=== PATIENT | female | born 1995 | race Caucasian/White ===

== ENCOUNTER 2017-04-22 00:15 | Outpatient (CLI) | payer OTHER ==
[2017-04-22 00:51] VITALS: BP 114/75; PULSE 84; RESP 18; TEMP 96.7
[2017-04-22 01:07] LABS: Appearance,Urine Cloudy (Clear); Bacteria,Urine Occasional /hpf; Bilirubin,Urine Negative (Negative); Glucose,Urine (UA) Negative (Negative); Ketones,Urine 2+ (Negative); Leukocyte Esterase,Urine Large (Negative); Mucus,Urine Rare /hpf; Nitrite,Urine Positive (Negative); Particle Count 29267; Protein,Urine 1+ (Negative); RBC,Urine 26 /hpf (0-5); Specific Gravity,Urine 1.021 (1.001-1.035); Squamous Epithelial Cell,Urine 34 /hpf (0-4); UA Billing (MACRO vs. MICRO) MICRO; Urobilinogen,Urine <2.0 mg/dL (<2.0); WBC,Urine >182 /hpf (0-5)
--- NOTE | 2017-05-21 09:15 | P.MSEPDOC ---
Presenting Problems - Arrival Data Date of Arrival on Unit: 04/22/17 Time of Arrival on Unit: 00:20 Mode of Transport: Wheelchair - Complaint OB-Reason for Admission/Chief Complaint: Observation/Evaluation Comment: vaginal pressure Medical History - Information : 2 Para: 1 Term: 1 : 0 Abortions: Spontaneous or Elective: 0 Number of Living Children: 1 - Gestational Age Gestational Age by RICHARD (wks/days): 29 Weeks and 6 Days Review of Systems - Review of Systems Constitutional: No problems Breast: No problems ENT: No problems Cardiovascular: No problems Respiratory: No problems Gastrointestinal: No problems Genitourinary: No problems Musculoskeletal: No problems Neurological: No problems Skin: No problems Vital Signs - Temperature Temperature: 96.7 F Temperature Source: Temporal Artery Scan - Pulse Right Pulse Rate: 84 Pulse Assessment Method: Automatic Cuff - Respirations Respiratory Rate: 18 Oxygen Delivery Method: Room Air O2 Sat by Pulse Oximetry: 100 - Blood Pressure Right Arm Blood Pressure: 114/75 Blood Pressure Mean: 88 Blood Pressure Source: Automatic Cuff Medical Screen Scoring (Pre) - Cervical Exam Dilation: 0 cm = 0 Membranes: Intact - Uterine Contractions Frequency: N/A Duration: N/A Intensity: N/A - Maternal Vital Signs Maternal Temperature: N/A Maternal Blood Pressure: N/A Signs of Preeclampsia: N/A Maternal Respirations: N/A - Maternal Trauma Maternal Trauma: N/A - Assessment Baseline FHR: 130 Heart Rate - NICHD Category: Category I (Normal) = 0 NST: Reactive Position: N/A Station: N/A - Total Score Total Score (Pre): 0 - Level of Risk Level of Risk: Low (0-5) Physician Notification (Pre) - Physician Notified Physician Notified Date: 04/22/17 Physician Notified Time: 00:45 Physician/Practitioner Notifed:: Dr Castillo Spoke With: Eliza Bueno RN New Order Received: Yes - Notification Comment Comment: send u/a to lab, have pt call office on Sunday for a follow up appt Disposition - Disposition Discharge Date: 04/22/17 Discharge Time: 01:21 I agree with the RN Medical Screening Exam: Yes Risk & Benefit of care provided described in d/c instruction: Yes Diagnosis: FALSE LABOR BEFORE 37 COMPLETED WEEKS OF GEST, THIRD TRI
== END 2017-04-22 01:21 | disposition home or self-care (01) ==
LOC: FBPOP 00:15
PROVIDERS: ATTEND Obstetrics & Gynecology
DX: O47.03 False labor before 37 completed weeks of gestation, third trimester (principal); Z3A.29 29 weeks gestation of pregnancy
CPT/HCPCS: 59025; 82731; 81001; 87086; G0463; 99213

== ENCOUNTER 2017-05-16 23:30 | Outpatient (CLI) | payer OTHER ==
[2017-05-17 00:24] VITALS: BP 121/71; PULSE 73; RESP 16; TEMP 97.2
[2017-05-17 00:32] LABS: Appearance,Urine Cloudy (Clear); Bacteria,Urine Rare /hpf; Bilirubin,Urine Negative (Negative); Glucose,Urine (UA) Negative (Negative); Ketones,Urine Trace (Negative); Leukocyte Esterase,Urine Large (Negative); Mucus,Urine Occasional /hpf; Nitrite,Urine Negative (Negative); PH, Urine 6.5 (5.0-8.0); Particle Count 17025; Protein,Urine Trace (Negative); RBC,Urine 3 /hpf (0-5); Specific Gravity,Urine 1.013 (1.001-1.035); Squamous Epithelial Cell,Urine 2 /hpf (0-4); UA Billing (MACRO vs. MICRO) MICRO; Urobilinogen,Urine <2.0 mg/dL (<2.0); WBC,Urine 18 /hpf (0-5)
[2017-05-17] MEDS ORDERED: NITROFURANTOIN MONOHYD/M-CRYST 100 MG CAP PO STA (01:11)
--- NOTE | 2017-06-09 12:06 | P.MSEPDOC ---
Presenting Problems - Arrival Data Date of Arrival on Unit: 05/16/17 Time of Arrival on Unit: 23:35 Mode of Transport: Wheelchair - Complaint OB-Reason for Admission/Chief Complaint: Pain Comment: back pain, pelvic pressure, spotting an "orange discharge" x1 Medical History - Information : 2 Para: 1 Term: 1 : 0 Abortions: Spontaneous or Elective: 0 Number of Living Children: 1 - Gestational Age Gestational Age by RICHARD (wks/days): 33 Weeks and 3 Days - History Comment: hx of 4th degree lac with 1st vag delivery, scheduled for primary c/s this time Review of Systems - Review of Systems Constitutional: No problems Breast: No problems ENT: No problems Cardiovascular: No problems Respiratory: No problems Gastrointestinal: No problems Genitourinary: No problems Musculoskeletal: No problems Neurological: No problems Skin: No problems Comment: bladder infection a few weeks ago. large amount thick, yellow, clumpy vag discharge noted on exam Vital Signs - Temperature Temperature: 97.2 F Temperature Source: Temporal Artery Scan - Pulse Right Pulse Rate: 73 Pulse Assessment Method: Pulse Oximetry - Respirations Respiratory Rate: 16 O2 Sat by Pulse Oximetry: 98 - Blood Pressure Right Arm Blood Pressure: 121/71 Blood Pressure Mean: 87 Blood Pressure Source: Automatic Cuff Medical Screen Scoring (Pre) - Cervical Exam Dilation: 1-3 cm = 1 Membranes: Intact - Uterine Contractions Frequency: > 5 minutes apart = 1 Duration: N/A Intensity: N/A - Maternal Vital Signs Maternal Temperature: N/A Maternal Blood Pressure: N/A Signs of Preeclampsia: N/A Maternal Respirations: N/A - Maternal Trauma Maternal Trauma: N/A - Assessment Baseline FHR: 130 Heart Rate - NICHD Category: Category I (Normal) = 0 NST: Reactive Position: N/A Station: N/A - Total Score Total Score (Pre): 2 - Level of Risk Level of Risk: Low (0-5) Physician Notification (Pre) - Physician Notified Physician Notified Date: 05/17/17 Physician Notified Time: 00:11 Physician/Practitioner Notifed:: Dr Escobedo - Notification Comment Comment: orders to send UA & ffn, if both are negative, pt may be d/c'd home with instructions to keep scheduled appt next week. if either are positive, call for further orders. Medical Screen Scoring (Post) - Cervical Exam Dilation: Exam Deferred Effacement: Exam Deferred - Uterine Contractions Frequency: N/A Duration: N/A Intensity: N/A - Maternal Vital Signs Maternal Temperature: N/A Signs of Preeclampsia: N/A - Assessment Heart Rate: 130 Heart Rate - NICHD Category: Category I (Normal) = 0 - Total Score Total Score (Post): 0 - Post Treatment Level of Risk Post Treatment Level of Risk: Low (0-5) Physician Notification (Post) - Physician Notified Physician Notified Date: 05/17/17 Physician Notified Time: 01:14 Physician/Practitioner Notified:: Dr Escobedo - Notification Comment Comment: 1 dose po macrobid now. call office in am for rx. d/c home after abx given here. Disposition - Disposition OB Disposition: Discharge to home Discharge Date: 05/17/17 Discharge Time: 02:14 I agree with the RN Medical Screening Exam: Yes Risk & Benefit of care provided described in d/c instruction: Yes Diagnosis: FALSE LABOR AT OR AFTER 37 COMPLETED WEEKS OF GESTATION
== END 2017-05-17 02:15 | disposition home or self-care (01) ==
LOC: FBPOP 23:30
PROVIDERS: ATTEND Obstetrics & Gynecology Obstetrics
DX: O47.1 False labor at or after 37 completed weeks of gestation (principal); Z3A.33 33 weeks gestation of pregnancy
CPT/HCPCS: 59025; 82731; 81001; 87086; G0463; 99213

== ENCOUNTER 2017-06-25 10:10 | Inpatient (IN) | payer OTHER ==
[2017-06-21 12:00] VITALS: BMI 40.5
[2017-06-25] MEDS ORDERED: ceFAZolin IN SWFI 2 GM/20 ML SYRINGE IVP ONE (10:31)
[2017-06-25] MEDS ORDERED: CITRIC ACID-SODIUM CITRATE 15 ML CUP PO ONE (10:31)
[2017-06-25] MEDS: LACTATED RINGERS 1,000 ML IV SCH ×4 (10:40→23:03)
[2017-06-25 11:11] LABS: Basophils % (A) 0 %; CH 24.8; CHCM 30.5; Eosinophils # (A) 0.1 k/uL (0-0.7); Eosinophils % (A) 1 %; HCT 36.9 % (34.0-46.0); HDW 3.09; HGB 11.5 gm/dL (11.4-16.0); Hypochromasia Marked; Luc # (Auto) 0.15; Luc % (Auto) 2; Lymphocytes # (A) 2.9 k/uL (1.0-4.8); Lymphocytes % (A) 29 %; MCH 25.5 pg (25.0-35.0); MCHC 31.2 g/dL (31.0-37.0); MCV 81.9 fL (80.0-100.0); Mean Platelet Volume 8.1; Monocytes # (A) 0.5 k/uL (0-1.0); Monocytes % (A) 5 %; Neutrophils # (A) 6.4 k/uL (1.3-7.7); Neutrophils % (A) 63 %; WBC 10.1 k/uL (3.8-10.6); WBC (Perox) 10.03
[2017-06-25] MEDS ORDERED: KETOROLAC 30 MG/ML 1 ML VIAL ONE (12:06)
[2017-06-25] MEDS ORDERED: OXYTOCIN 10 UNIT/ML 1 ML VIAL ONE (12:06)
[2017-06-25] MEDS ORDERED: ONDANSETRON 4 MG/2 ML VIAL ONE (12:06)
[2017-06-25] MEDS ORDERED: MORPHINE SULFATE (PF) 0.3 MG/0.3 ML SYR ONE (12:06)
[2017-06-25] MEDS ORDERED: NALBUPHINE 10 MG/ML AMPUL ONE (12:06)
[2017-06-25] MEDS ORDERED: PHENYLEPHRINE-0.9% NACL SYG 1 MG/10 ML SYRINGE ONE (12:06)
--- NOTE | 2017-06-25 12:10 | P.HPOB ---
History of Present Illness H&P Date: 06/25/17 This is a 22-year-old white female 2 para 1001 EDC 07/02/2017 at 39 weeks gestation. Patient presents today for elective section. She had a previous vaginal delivery with a fourth degree laceration, which required transfusion after hemorrhage. Recommendation from previously delivering addition was for section, declining vaginal . Fetus is been active throughout the . She denies vaginal bleeding or fluid leakage at this time. Past medical history is significant for blood transfusion 2015 after hemorrhage. Past surgical history is negative. Current medications vitamins daily. ALLERGIES none known. Family history is significant for diabetes and lung cancer and positive MTH SR. Obstetric history is significant for blood type A positive, rubella status immune. VDRL testing, urine culture, hepatitis B surface antigen, HIV testing, gonorrhea and chlamydia cultures all negative. One-hour Glucola 163, 3 hour GTT within normal limits. Positive group B strep cultures. On exam this is a pleasant young female, 5 foot 6 inches, 251 pounds, vital signs are stable and she is afebrile. Initial blood pressure 137/92. The general physical exam is within normal limits. Chest is clear. Extremities reveal no edema. 2+ reflexes. Cervix is 3 cm dilated, 75% effaced, vertex presentation. heart rate is consistent with reactive NST. Impression: 39 week intrauterine with a history of fourth degree laceration requiring blood transfusion at the time of delivery. Recommendation from previously delivering community outreach coordinator is for section. Plan: Antibiotics will be given. Patient is aware the risks benefits and alternatives of this plan. Questions answered. We will proceed with section, patient declining option of tubal ligation. Review of Systems Negative except as in HPI Past Medical History Past Medical History: No Reported History, GERD/Reflux Additional Past Medical History / Comment(s): prolapsed bladder. SEASONAL ALLERGIES History of Any Multi-Drug Resistant Organisms: None Reported Past Surgical History: Tonsillectomy Past Anesthesia/Blood Transfusion Reactions: No Reported Reaction Smoking Status: Never smoker - Past Family History Brother(s) Family Medical History: Blood Disorder Additional Family Medical History / Comment(s): MTHFR Medications and Allergies Home Medications Medication Instructions Recorded Confirmed Type Pediatric Multivitamin No.30 2 each PO DAILY 06/05/17 06/21/17 History [Multivitamin Children's Gummies] Cetirizine HCl [Zyrtec] 10 mg PO DAILY 06/21/17 06/21/17 History Allergies Allergy/AdvReac Type Severity Reaction Status Date / Time sulfamethoxazole Allergy Intermediate Rash/Hives Verified 06/21/17 11:52 [From Bactrim] trimethoprim [From Bactrim] Allergy Intermediate Rash/Hives Verified 06/21/17 11 :52 Exam - Vital Signs Vital signs: Intake and Output 06/24/17 06/25/17 06/25/17 22:59 06:59 14:59 Other: Weight 113.398 kg Patient Weight 06/26/17 06:59 Weight 113.398 kg See dictation under HPI please Results Result Diagrams: 06/25/17 10:45 Assessment and Plan Plan: Elective low transverse section at 39 weeks gestation, antibiotics for positive group B strep. Patient declining option for tubal ligation. Time with Patient: Less than 30
--- NOTE | 2017-06-25 13:09 | P.OP ---
Date of Procedure: 06/25/17 Preoperative Diagnosis: 39 week intrauterine , previous fourth degree laceration with hemorrhage, vaginal contraindicated. Postoperative Diagnosis: Liveborn male , nuchal cord 1. Procedure(s) Performed: Primary low transverse section Anesthesia: spinal Surgeon: Yovana Castillo Sustainability Analyst #1: Stef Lopez Estimated Blood Loss (ml): 600 IV fluids (ml): 1,800 Urine output (ml): 150 Pathology: other (Placenta) Condition: stable Disposition: PACU Description of Procedure: Patient is brought to the operating suite where a spinal with Duramorph is placed. She is then positioned in the dorsal lithotomy position with left lateral uterine displacement. The abdomen is prepped and draped in usual sterile fashion. The appropriate timeout is performed to assure proper patient and procedural identification. Analgesia is checked and noted to be adequate. A low transverse skin incision is made in this is carried down through the subcutaneous tissue which is approximate 6 cm deep. Fascia is isolated, scored , and extended bilaterally with curved Infante scissors. Peritoneum is next identified, incised, there is no bowel or bladder involvement. The bladder blade is placed over the dome of the bladder and at all times the bladder is Well from the operative field to avoid bladder and/or ureteral injury. A low transverse uterine incision is made in this is carried bilaterally with blunt dissection. Artificial amniorrhexis reveals clear fluid. Infant's head is delivered in the left occiput transverse position, there was a nuchal cord noted 1. The oropharynx, nasopharynx, and external nares were all bulb suctioned on the abdomen. Patient is officially delivered of a liveborn male at 1232 hrs. Umbilical cord is doubly clamped and ligated, he is handed to waiting nurses for evaluation where scores of 9 and 9 at one and 5 minutes respectively are given. Cord sample is held in case cord gases are appropriate. The placenta is delivered manually, it is inspected and noted to be intact with trivascular cord at 1232 hours. The uterus is then externalized , it is wiped clean with a sterile sponge to avoid any retained products of conception. The uterus is massaged and oxytocin is given. Antibiotics were given prior to beginning of the procedure. The uterus is closed in a two-step fashion, utilizing 0 Vicryl suture. First layer is running locking. Second layer is imbricated. Bilateral ovaries and tubes are inspected and noted to be within the normal range. Abdomen is suctioned with suction on guard and the uterus is gently placed back into the abdominal cavity. Bilateral gutters are inspected and cleaned. Uterine incision is clean and dry. Peritoneum was allowed to close by secondary intention. Fascia is closed in a running stitch of 0 Vicryl with over ligation in the midline. Subcutaneous tissue is irrigated, noted to be clean and dry. It is reapproximated with 3-0 Vicryl in a running stitch. 4-0 Monocryl suture is used in a subcuticular fashion for final skin closure. All sponge needle and enhancement counts are correct. [place] is noted to be draining clear urine, 150 mL's. Dressing is applied to the incision. Uterus is massaged. Total estimated blood loss 600 mL's. Patient is brought back to the recovery room with stable vital signs. She is requesting circumcision for her infant son.
[2017-06-25] MEDS ORDERED: ONDANSETRON 4 MG/2 ML VIAL IVP PRN (13:10)
[2017-06-25] MEDS ORDERED: METOCLOPRAMIDE 5 MG/ML 2 ML VIAL IVP PRN (13:10)
[2017-06-25] MEDS ORDERED: diphenhydrAMINE 50 MG/ML 1 ML VIAL IVP PRN ×2 (13:10)
[2017-06-25] MEDS ORDERED: diphenhydrAMINE 25 MG CAP PO PRN (13:10)
[2017-06-25] MEDS ORDERED: KETOROLAC 30 MG/ML 1 ML VIAL IVP PRN (13:10)
[2017-06-25] MEDS ORDERED: NALOXONE 0.4 MG/ML 1 ML VIAL IV PRN (13:10)
[2017-06-25] MEDS ORDERED: ACETAMINOPHEN TAB 325 MG TAB PO PRN (13:10)
[2017-06-25] MEDS ORDERED: diphenhydrAMINE 50 MG CAP PO PRN (13:10)
[2017-06-25] MEDS ORDERED: ZOLPIDEM 5 MG TAB PO PRN (13:10)
[2017-06-25] MEDS ORDERED: Acetaminophen-Codeine 300-30mg TAB PO PRN (13:10)
[2017-06-25] MEDS: SENNOSIDES-DOCUSATE SODIUM 1 EACH TAB PO SCH (21:17)
[2017-06-26] MEDS: LACTATED RINGERS 1,000 ML IV SCH ×3 (05:09→20:29)
[2017-06-26 08:02] LABS: Basophils % (A) 0 %; CH 25.4; CHCM 30.3; Eosinophils # (A) 0.1 k/uL (0-0.7); Eosinophils % (A) 1 %; HCT 35.5 % (34.0-46.0); HDW 3.26; HGB 10.6 gm/dL (11.4-16.0); Hypochromasia Marked; Luc # (Auto) 0.11; Luc % (Auto) 1; Lymphocytes # (A) 2.1 k/uL (1.0-4.8); Lymphocytes % (A) 23 %; MCH 25.1 pg (25.0-35.0); MCHC 29.8 g/dL (31.0-37.0); MCV 84.3 fL (80.0-100.0); Mean Platelet Volume 7.2; Monocytes # (A) 0.3 k/uL (0-1.0); Monocytes % (A) 3 %; Neutrophils # (A) 6.6 k/uL (1.3-7.7); Neutrophils % (A) 72 %; RBC 4.22 m/uL (3.80-5.40); RDW 14.1 % (11.5-15.5); WBC 9.1 k/uL (3.8-10.6)
[2017-06-26] MEDS: SENNOSIDES-DOCUSATE SODIUM 1 EACH TAB PO SCH ×2 (08:11→16:42)
[2017-06-26 08:32] VITALS: RESP 18
--- NOTE | 2017-06-26 09:07 | P.PN ---
Subjective Progress Note Date: 06/26/17 Slept well. Pain well managed. Moderate lochia rubra. Positive flatus. Objective - Vital Signs Vital signs: Vital Signs Temp 98.4 F 06/26/17 08:00 Pulse 68 06/26/17 08:00 Resp 18 06/26/17 08:00 BP 109/61 06/26/17 08:00 Pulse Ox 100 06/26/17 04:00 Intake & Output 06/25/17 06/26/17 06/26/17 18:59 06:59 18:59 Intake Total 600 250 Output Total 1000 750 Balance -400 -750 250 Weight 113.398 kg Intake: IV 600 Lactated Ringers 1,000 ml 240 @ 125 mls/hr IV .Q8H JOEL Rx#:[id number] Oral 250 Output: Urine 400 750 Uretheral (Collier) 200 Estimated Blood Loss 600 Other: Voiding Method Toilet # Voids 1 1 # Bowel Movements 0 - Constitutional General appearance: Present: average body habitus, cooperative - EENT Eyes: Present: PERRLA ENT: Present: hearing grossly normal - Neck Neck: Present: normal ROM Thyroid: bilateral: normal size - Respiratory Respiratory: bilateral: CTA - Cardiovascular Rhythm: regular - Gastrointestinal General gastrointestinal: Present: normal bowel sounds - Genitourinary Genitourinary Comment(s): Uterus firm, midline, symmetric, 18 week size. Abdominal incision clean and dry , intact, Steri-Strips and Mastisol applied. - Integumentary Integumentary: Present: normal turgor - Neurologic Neurologic: Present: CNII-XII intact - Musculoskeletal Musculoskeletal: Present: gait normal - Psychiatric Psychiatric: Present: A&O x's 3, appropriate affect, intact judgment & insight - Labs CBC & Chem 7: 06/26/17 07:44 Labs: Abnormal Lab Results - Last 24 Hours (Table) 06/26/17 Range/Units 07:44 Hgb 10.6 L (11.4-16.0) gm/dL MCHC 29.8 L (31.0-37.0) g/dL Assessment and Plan Plan: Advance diet and activity. Circumcision this morning. Likely discharge home tomorrow. Time with Patient: Less than 30
[2017-06-26] MEDS: IBUPROFEN 600 MG TAB PO PRN ×2 (10:04→16:42)
--- NOTE | 2017-06-26 10:12 | P.PN ---
Progress Note - Text Progress Note Date: 06/26/17 Status patient received intrathecal Duramorph ration was seen today in sitting up in bed no complaints being his pain score 0/10 no headache no itching. The cement and plan: Recent doing well in general no complications from anesthesia.
[2017-06-27] MEDS ORDERED: Acetaminophen-Codeine 300-30mg TAB ONE (01:30)
[2017-06-27] MEDS ORDERED: IBUPROFEN 600 MG TAB PO ONE (01:30)
[2017-06-27] MEDS: SENNOSIDES-DOCUSATE SODIUM 1 EACH TAB PO SCH (08:18)
--- NOTE | 2017-06-27 09:50 | P.DS ---
Providers Date of admission: 06/25/17 10:10 Expected date of discharge: 06/27/17 Attending physician: Yovana Castillo Primary care physician: Stated None Hospital Course: This is a 22-year-old white female 2 para 1001 EDC 07/02/2017 at 39 weeks gestation. Patient's previous delivery involved a fourth degree laceration that hemorrhage, requiring blood transfusion. Notes reviewed from previous delivery, includedpatient from the physician that future vaginal delivery was contraindicated, and that section was the preferred route for any future deliveries. Therefore 39 weeks, section was scheduled. Please see admitting history and physical for details. Patient underwent a primary low transverse section and gave to a liveborn male infant with scores of 9 and 9 at one and 5 minutes respectively. Infant weighed 8 lbs. 4 oz. or 3740 g. Estimated blood loss at surgery was 600 mL's. No intrauterine anomalies were noted. Please see my dictated note for details. Postoperatively the patient has done well. This morning she is complaining of a spinal headache, anesthesia has been notified and a blood patch is planned. The incision is clean and dry, intact, Steri-Strips applied. There is minimal to moderate lochia rubra. Uterus is firm, nontender, midline, 19-18 week size. Extremities are negative for edema. There is ecchymosis noted at the site of spinal injection on the patient's back. [place] has been circumcised and is doing well. Breast-feeding is going well. Prescription for breast pump has been written. Plan is for discharge home later today after the blood patch is given per the anesthesia staff. I have reminded the patient oh intercourse, tampons or douching. She will use [id number] ibuprofen as needed for pain, 200 mg pills, 3 every 6 hours as needed. I have asked her to call me with any fevers shakes or chills, foul smelling or copious lochia, with the passage of large blood clots, with any pain not alleviated by ibuprofen products, or indeed with any concerns. will follow-up with debrander as per recommendations. Contraceptive options have been discussed, and we will review this further in the office. She will follow-up with me in the office in 2 weeks. Patient Condition at Discharge: Good Plan - Discharge Summary Discharge Rx Participant: No New Discharge Prescriptions: No Action Pediatric Multivitamin No.30 [Multivitamin Children's Gummies] 2 each PO DAILY Cetirizine HCl [Zyrtec] 10 mg PO DAILY Discharge Medication List Pediatric Multivitamin No.30 [Multivitamin Children's Gummies] 2 each PO DAILY 06/05/17 [History] Cetirizine HCl [Zyrtec] 10 mg PO DAILY 06/21/17 [History] Follow up Appointment(s)/Referral(s): Yovana Castillo MD [STAFF PHYSICIAN] - 2 Weeks Discharge Disposition: HOME SELF-CARE
--- NOTE | 2017-06-27 11:00 | P.GSHP ---
History of Present Illness H&P Date: 06/27/17 This is a 22 years old. Female. Day 2 status post under spinal anesthesia, yesterday afternoon and today patient was complaining of severe positional headache which is enclosed with the sitting position and improved with laying supine, there was no focal neurological deficit there is no fever, headache not improve with the conservative treatment for this reason consultation for epidural blood patch was placed Past Medical History Past Medical History: No Reported History, GERD/Reflux Additional Past Medical History / Comment(s): prolapsed bladder. SEASONAL ALLERGIES History of Any Multi-Drug Resistant Organisms: None Reported Past Surgical History: Tonsillectomy Past Anesthesia/Blood Transfusion Reactions: No Reported Reaction Additional Past Anesthesia/Blood Transfusion Reaction / Comment(s): august 2014 blood transfusion after vag delivery of 2 units. Smoking Status: Never smoker - Past Family History Brother(s) Family Medical History: Blood Disorder Additional Family Medical History / Comment(s): MTHFR Medications and Allergies Home Medications Medication Instructions Recorded Confirmed Type Pediatric Multivitamin No.30 2 each PO DAILY 06/05/17 06/21/17 History [Multivitamin Children's Gummies] Cetirizine HCl [Zyrtec] 10 mg PO DAILY 06/21/17 06/21/17 History Allergies Allergy/AdvReac Type Severity Reaction Status Date / Time sulfamethoxazole Allergy Intermediate Rash/Hives Verified 06/21/17 11:52 [From Bactrim] trimethoprim [From Bactrim] Allergy Intermediate Rash/Hives Verified 06/21/17 11 :52 Surgical - Exam Vital Signs Temp Pulse Resp BP Pulse Ox 98.0 F 96 18 138/92 100 06/25/17 10:20 06/25/17 10:20 06/25/17 10:20 06/25/17 10:20 06/25/17 10:20 Results - Labs 06/26/17 07:44 Assessment and Plan Plan: Assessment and plan= postdural puncture headache, failed conservative treatment , patient could benefit from epidural blood patch procedure risk and benefits discussed with the patient she agreed with the preceding
--- NOTE | 2017-06-27 11:02 | P.PCN ---
Date of Procedure: 06/27/17 Procedure(s) Performed: Procedure= lumbar epidural blood patch. Preoperative diagnosis= postdural puncture headache. Postoperative diagnoses= post dural puncture headache. Indication for the procedure= patient developed headache after spinal anesthesia ,headache persists in spite of conservative treatment, there is no focal neurological deficit, no fever, no neck stiffness, headache worse with sitting and standing position, and improved with lying supine, for this reason patient is a good candidate for epidural blood patch. anesthesia= local infiltration with lidocaine 1% 3 mL. Complications= none. Description of the procedure= patient identified risks and benefits of the procedure explained to the patient and patient agreed with proceeding, vital signs monitored during the procedure Back lumbar area prepped with chlorhexidine 3 times, then drape applied the local infiltration of the skin and subcutaneous tissue with lidocaine 1% 3 mL at L5-S1 interlaminar space then 20 -gauge Tuohy needle advanced slowly at L5- S1 interlaminar space, There was positive loss of resistance to normal saline, no heme no paresthesia no cerebrospinal fluid, then after that he ML of the blood taken from the patient under strict sterile technique, and after the left antecubital area prepped with a chlorhexidine 3 times using 20-gauge Angiocath, and under sterile technique the 20 ML of the block taken from the patient injected in the epidural space after negative aspiration for heme or CSF and there was no paresthesia then the needle removed intact the skin cleaned and the , bandage applied and patient discharged home in stable condition after discharge criteria met,
[2017-06-27] MEDS: IBUPROFEN 600 MG TAB PO PRN (12:52)
[2017-06-27 15:21] VITALS: BP 107/61; PULSE 65; TEMP 97.9
== END 2017-06-27 16:11 | disposition home or self-care (01) | DRG 540 ==
LOC: 4FBP 10:10
PROVIDERS: ADMIT Obstetrics & Gynecology; ATTEND Obstetrics & Gynecology
PROC: 10D00Z1 Extraction of Products of Conception, Low, Open Approach (ICD-10-PCS; principal; 2017-06-25 12:00)
PROC: 3E0R3GC Introduction of Other Therapeutic Substance into Spinal Canal, Percutaneous Approach (ICD-10-PCS; 2017-06-27)
DX: O69.81X0 Labor and delivery complicated by cord around neck, without compression, not applicable or unspecified (principal); Z88.2 Allergy status to sulfonamides; Z37.0 Single live birth; Z3A.39 39 weeks gestation of pregnancy; G97.1 Other reaction to spinal and lumbar puncture; Z79.899 Other long term (current) drug therapy; Y84.4 Aspiration of fluid as the cause of abnormal reaction of the patient, or of later complication, without mention of misadventure at the time of the procedure
CPT/HCPCS: 85025; 86850; 86900; 86901; 88307

== ENCOUNTER 2019-11-21 20:08 | Emergency (ER) | payer OTHER ==
[2019-11-21 20:18] VITALS: TEMP 98.3
[2019-11-21] MEDS ORDERED: SODIUM CHLORIDE 0.9% 1,000 ML IV STA (20:58)
[2019-11-21 21:35] VITALS: BP 116/68; PULSE 82; RESP 16
[2019-11-21 21:43] LABS: Appearance,Urine Clear (Clear); Bacteria,Urine Rare /hpf; Bilirubin,Urine Negative (Negative); Blood,Urine Negative (Negative); Color,Urine Yellow; Glucose,Urine (UA) Negative (Negative); Ketones,Urine Negative (Negative); Leukocyte Esterase,Urine Moderate (Negative); Mucus,Urine Rare /hpf; Nitrite,Urine Negative (Negative); PH, Urine 5.5 (5.0-8.0); Protein,Urine Negative (Negative); RBC,Urine 1 /hpf (0-5); Specific Gravity,Urine 1.027 (1.001-1.035); Squamous Epithelial Cell,Urine 11 /hpf (0-4); Urobilinogen,Urine <2.0 mg/dL (<2.0); WBC,Urine 7 /hpf (0-5)
[2019-11-21 22:03] LABS: Basophils % (A) 0 %; Eosinophils # (A) 0.1 k/uL (0-0.7); Eosinophils % (A) 2 %; HCT 47.1 % (34.0-46.0); HGB 15.7 gm/dL (11.4-16.0); Lymphocytes # (A) 2.8 k/uL (1.0-4.8); Lymphocytes % (A) 36 %; MCH 29.8 pg (25.0-35.0); MCHC 33.3 g/dL (31.0-37.0); MCV 89.8 fL (80.0-100.0); Mean Platelet Volume 7.5; Monocytes # (A) 0.4 k/uL (0-1.0); Monocytes % (A) 5 %; Neutrophils # (A) 4.4 k/uL (1.3-7.7); Neutrophils % (A) 56 %; Platelet Count 294 k/uL (150-450); RBC 5.25 m/uL (3.80-5.40); RDW 13.7 % (11.5-15.5); WBC 7.9 k/uL (3.8-10.6)
[2019-11-21 22:04] LABS: ALT 17 U/L (4-34); AST 21 U/L (14-36); African American GFR (CKD) >90 (>60 ml/min/1.73 sqM); Albumin 4.2 g/dL (3.5-5.0); Alkaline Phosphatase 90 U/L (38-126); Amylase 57 U/L (30-110); Anion Gap 7 mmol/L; Blood Urea Nitrogen 11 mg/dL (7-17); Calcium 10.3 mg/dL (8.4-10.2); Carbon Dioxide 23 mmol/L (22-30); Chloride 106 mmol/L (98-107); Glucose 73 mg/dL (74-99); Non-African American GFR(CKD) >90 (>60 ml/min/1.73 sqM); Potassium 3.9 mmol/L (3.5-5.1); Sodium 136 mmol/L (137-145); Total Bilirubin 0.2 mg/dL (0.2-1.3); Total Protein 7.5 g/dL (6.3-8.2)
--- NOTE | 2019-11-21 22:25 | ED ---
Abdominal Pain HPI - General Chief Complaint: Abdominal Pain Stated Complaint: Cramping-13 wks Time Seen by Provider: 11/21/19 20:23 Source: patient Mode of arrival: ambulatory Limitations: no limitations - History of Present Illness Initial Comments: 24-year-old female patient who is approximately 13 weeks presents to the emergency department today for evaluation of right upper quadrant abdominal pain. Patient states she has been having pain for the last couple of days. She did see her primary care physician this morning with diagnosed with urinary tract infection and given Keflex. Patient states that her cramping seemed to w orsen this evening so she presented here for further evaluation. States it is a cramping sensation that is in the right upper quadrant and goes across her abdomen. Denies any back pain. Denies fever or chills. Denies any nausea, vomiting, constipation, or diarrhea. She denies any hematuria, dysuria, urinary frequency, urinary urgency. She denies any pelvic cramping, vaginal bleeding, or vaginal discharge. She did have an ultrasound at 8 weeks gestation confirming intrauterine . Patient denies any recent rash, cough, shortness of breath, chest pain, numbness, tingling, dizziness, weakness, headache, visual changes, or any other complaints. - Related Data Home Medications Medication Instructions Recorded Confirmed Pediatric Multivitamin No.30 2 each PO DAILY 06/05/17 11/21/19 [Multivitamin Children's Gummies] Cephalexin [Keflex] 500 mg PO Q6H 11/21/19 11/21/19 Folic Acid 1 mg PO DAILY 11/21/19 11/21/19 Allergies Allergy/AdvReac Type Severity Reaction Status Date / Time sulfamethoxazole Allergy Intermediate Rash/Hives Verified 11/21/19 21:09 [From Bactrim] trimethoprim [From Bactrim] Allergy Intermediate Rash/Hives Verified 11/21/19 21:09 nitrofurantoin Allergy Rash/Hives Verified 11/21/19 21:09 [From Macrobid] adhesive tape AdvReac Unknown Verified 11/21/19 21:09 Review of Systems ROS Statement: Those systems with pertinent positive or pertinent negative responses have been documented in the HPI. ROS Other: All systems not noted in ROS Statement are negative. Past Medical History Past Medical History: No Reported History, GERD/Reflux Additional Past Medical History / Comment(s): prolapsed bladder. SEASONAL ALLERGIES History of Any Multi-Drug Resistant Organisms: None Reported Past Surgical History: Tonsillectomy Past Anesthesia/Blood Transfusion Reactions: No Reported Reaction Additional Past Anesthesia/Blood Transfusion Reaction / Comment(s): august 2014 blood transfusion after vag delivery of 2 units. Past Psychological History: No Psychological Hx Reported Smoking Status: Never smoker Past Alcohol Use History: None Reported Past Drug Use History: None Reported - Past Family History Brother(s) Family Medical History: Blood Disorder Additional Family Medical History / Comment(s): MTHFR General Exam Limitations: no limitations General appearance: alert, in no apparent distress, other (Physical well- developed, well-nourished adult female patient in no acute distress. Vital signs upon presentation are temperature 98.3F, pulse 69, respirations 20, blood pressure 120/72, pulse ox 99% on room air.) Eye exam: Present: normal appearance, PERRL, EOMI. Absent: scleral icterus, conjunctival injection, periorbital swelling ENT exam: Present: normal exam, normal oropharynx, mucous membranes moist Respiratory exam: Present: normal lung sounds bilaterally. Absent: respiratory distress, wheezes, rales, rhonchi, stridor Cardiovascular Exam: Present: regular rate, normal rhythm, normal heart sounds. Absent: systolic murmur, diastolic murmur, rubs, gallop, clicks GI/Abdominal exam: Present: soft, tenderness (Right upper quadrant tenderness), normal bowel sounds. Absent: distended, guarding, rebound, rigid Back exam: Present: normal inspection. Absent: CVA tenderness (R), CVA tenderness (L) Neurological exam: Present: alert, oriented X3, CN II-XII intact Psychiatric exam: Present: normal affect, normal mood Skin exam: Present: warm, dry, intact, normal color. Absent: rash Course Vital Signs 11/21/19 11/21/19 11/21/19 20:16 21:34 22:43 Temperature 98.3 F 98.3 F Pulse Rate 69 82 82 Respiratory 20 16 16 Rate Blood Pressure 120/72 116/68 116/68 O2 Sat by Pulse 99 98 98 Oximetry Medical Decision Making - Medical Decision Making 24-year-old female patient presented to the emergency department today for evaluation of right upper quadrant abdominal cramping and pain. Patient is 13- 1/2 weeks , G3, P2. Denies vaginal bleeding or discharge. Denies pelvic cramping. Labs reviewed and are unremarkable. Urinalysis did show 7 white blood cells however she did start antibiotics for urinary tract infection. heart tones were obtained and range from 137-140. We did discuss possibility of gallbladder dysfunction as a cause for her symptoms. She is instructed to follow-up with her primary care physician for recheck in 1-2 days. She is instructed to maintain low-fat diet. She is instructed to contact her SENIOR GL ACCOUNTANT and inform her of her symptoms. Return parameters discussed in detail. She verbalizes understanding and agrees with this plan. - Lab Data Result diagrams: 11/21/19 21:42 11/21/19 21:42 Lab Results 11/21/19 11/21/19 11/21/19 Range/Units 20:45 21:42 21:42 WBC 7.9 (3.8-10.6) k/uL RBC 5.25 (3.80-5.40) m/uL Hgb 15.7 (11.4-16.0) gm/dL Hct 47.1 H (34.0-46.0) % MCV 89.8 (80.0-100.0) fL MCH 29.8 (25.0-35.0) pg MCHC 33.3 (31.0-37.0) g/dL RDW 13.7 (11.5-15.5) % Plt Count 294 (150-450) k/uL Neutrophils % 56 % Lymphocytes % 36 % Monocytes % 5 % Eosinophils % 2 % Basophils % 0 % Neutrophils # 4.4 (1.3-7.7) k/uL Lymphocytes # 2.8 (1.0-4.8) k/uL Monocytes # 0.4 (0-1.0) k/uL Eosinophils # 0.1 (0-0.7) k/uL Basophils # 0.0 (0-0.2) k/uL Sodium 136 L (137-145) mmol/L Potassium 3.9 (3.5-5.1) mmol/L Chloride 106 (98-107) mmol/L Carbon Dioxide 23 (22-30) mmol/L Anion Gap 7 mmol/L BUN 11 (7-17) mg/dL Creatinine 0.55 (0.52-1.04) mg/dL Est GFR (CKD-EPI)AfAm >90 (>60 ml/min/1.73 sqM) Est GFR (CKD-EPI)NonAf >90 (>60 ml/min/1.73 sqM) Glucose 73 L (74-99) mg/dL Calcium 10.3 H (8.4-10.2) mg/dL Total Bilirubin 0.2 (0.2-1.3) mg/dL AST 21 (14-36) U/L ALT 17 (4-34) U/L Alkaline Phosphatase 90 (38-126) U/L Total Protein 7.5 (6.3-8.2) g/dL Albumin 4.2 (3.5-5.0) g/dL Amylase 57 (30-110) U/L Lipase 136 (23-300) U/L Urine Color Yellow Urine Appearance Clear (Clear) Urine pH 5.5 (5.0-8.0) Ur Specific [place] 1.027 (1.001-1.035) Urine Protein Negative (Negative) Urine Glucose (UA) Negative (Negative) Urine Ketones Negative (Negative) Urine Blood Negative (Negative) Urine Nitrite Negative (Negative) Urine Bilirubin Negative (Negative) Urine Urobilinogen <2.0 (<2.0) mg/dL Ur Leukocyte Esterase Moderate H (Negative) Urine RBC 1 (0-5) /hpf Urine WBC 7 H (0-5) /hpf Ur Squamous Epith Cells 11 H (0-4) /hpf Urine Bacteria Rare H (None) /hpf Urine Mucus Rare H (None) /hpf Disposition Clinical Impression: Abdominal pain Disposition: HOME SELF-CARE Condition: Good Instructions (If sedation given, give patient instructions): Abdominal Pain (ED) Additional Instructions: Increase fluids. Rest. Complete antibiotic prescription as prescribed. Follow-up through primary care physician for recheck in 1-2 days. Follow up with her SENIOR GL ACCOUNTANT for recheck as soon as possible. Return immediately for any new, worsening, or concerning symptoms. Is patient prescribed a controlled substance at d/c from ED?: No Referrals: Clark Sanchez MD [Primary Care Provider] - 1-2 days Time of Disposition: 22:24
== END 2019-11-21 22:47 | disposition home or self-care (01) ==
LOC: EC 20:08
DX: O99.89 Other specified diseases and conditions complicating pregnancy, childbirth and the puerperium (principal); R10.11 Right upper quadrant pain; Z3A.13 13 weeks gestation of pregnancy; Z88.1 Allergy status to other antibiotic agents; Z88.2 Allergy status to sulfonamides; Z91.048 Other nonmedicinal substance allergy status
CPT/HCPCS: 36415; 80053; 81001; 82150; 83690; 85025; 96360; 99284

== ENCOUNTER 2020-04-13 20:15 | Outpatient (CLI) | payer OTHER ==
[2020-04-13 21:47] VITALS: BP 128/74; PULSE 99; RESP 16; TEMP 96.6
--- NOTE | 2020-05-26 07:38 | P.MSEPDOC ---
Presenting Problems - Arrival Data Date of Arrival on Unit: 04/13/20 Time of Arrival on Unit: 20:19 Mode of Transport: Ambulatory - Complaint OB-Reason for Admission/Chief Complaint: Pain Comment: Patient presents with sharp abdominal pain that is constant in nature that has been going on for about 15 minutes prior to arrival. States that she discussed this pain with Dr. Castillo at her last appt. and she told her to wear a support belt and to take breaks at work when the pain starts. Medical History - Information : 3 Para: 2 Term: 2 : 0 Abortions: Spontaneous or Elective: 0 Number of Living Children: 2 - Gestational Age Gestational Age by RICHARD (wks/days): 34 Weeks and 2 Days - History Complications: Prior Review of Systems - Review of Systems Constitutional: No problems Breast: No problems ENT: No problems Cardiovascular: No problems Respiratory: No problems Gastrointestinal: No problems Genitourinary: No problems Musculoskeletal: No problems Neurological: No problems Skin: No problems Vital Signs - Temperature Temperature: 96.6 F Temperature Source: Temporal Artery Scan - Pulse Pulse Oximetery Pulse Rate: 99 Pulse Assessment Method: Pulse Oximetry - Respirations Respiratory Rate: 16 Oxygen Delivery Method: Room Air - Blood Pressure Sitting Blood Pressure: 128/74 Blood Pressure Mean: 92 Blood Pressure Source: Automatic Cuff Medical Screen Scoring (Pre) - Cervical Exam Dilation: 0 cm = 0 Effacement: Exam Deferred Membranes: Intact - Uterine Contractions Frequency: > 5 minutes apart = 1 Duration: N/A Intensity: N/A - Maternal Vital Signs Maternal Temperature: N/A Maternal Blood Pressure: N/A Signs of Preeclampsia: N/A Maternal Respirations: N/A - Maternal Trauma Maternal Trauma: N/A - Assessment - Baby A Baseline FHR: 125 Heart Rate - NICHD Category: Category I (Normal) = 0 NST: Reactive Position: N/A Station: N/A - Total Score - Baby A Total Score - Baby A: 1 - Total Score - Baby B Total Score - Baby B: 1 - Total Score - Baby C Total Score - Baby C: 1 - Level of Risk - Baby A Level of Risk - Baby A: Low (0-5) - Level of Risk - Baby B Level of Risk - Baby B: Low (0-5) - Level of Risk - Baby C Level of Risk - Baby C: Low (0-5) Physician Notification (Pre) - Physician Notified Physician Notified Date: 04/13/20 Physician Notified Time: 21:12 New Order Received: Yes - Notification Comment Comment: Orders given to collect an FFN and check cervix and call back with report. [id number] Reported cervix is closed and thick, Physician states for patient to keep regularly scheduled appointment with Dr. Castillo for 04/15 that if she works tomorrow she can take the day off and request a note from Dr. Castillo if needed. Disposition - Disposition OB Disposition: Discharge to home, Written follow up instructions reviewed Discharge Date: 04/13/20 Discharge Time: 21:27 I agree with the RN Medical Screening Exam: Yes Risk & Benefit of care provided described in d/c instruction: Yes Diagnosis: abdominal pain in
== END 2020-04-13 21:27 | disposition home or self-care (01) ==
LOC: FBPOP 20:15
PROVIDERS: ATTEND Obstetrics & Gynecology
DX: O99.89 Other specified diseases and conditions complicating pregnancy, childbirth and the puerperium (principal); R10.9 Unspecified abdominal pain; Z3A.34 34 weeks gestation of pregnancy
CPT/HCPCS: 59025; G0463; 99213

== ENCOUNTER 2020-05-08 01:04 | Emergency (ER) | payer OTHER ==
[2020-05-08 01:10] VITALS: RESP 18; TEMP 98.1
--- NOTE | 2020-05-08 01:14 | ED ---
Extremity Problem HPI - General Chief complaint: Extremity Problem,Nontraumatic Stated complaint: Rt Foot Swelling, 37 wks pgt Time Seen by Provider: 05/08/20 01:14 Source: patient Mode of arrival: ambulatory Limitations: no limitations - History of Present Illness Initial comments: Patient is a 25-year-old female, 37 week presenting to the emergency department with chief complaint of leg swelling. Patient states today she was washing dishes and noted there is swelling in her right lower extremity. Patient states this is more than her typical swelling during her . She denies any calf tenderness, chest pain or shortness of breath. No previous history of DVT or PE. States several days ago she had a box knife follow on her right calf which now she has some bruising in the region but otherwise no other complaints. - Related Data Home Medications Medication Instructions Recorded Confirmed Pediatric Multivitamin No.30 2 each PO DAILY 06/05/17 04/13/20 [Multivitamin Children's Gummies] Folic Acid 1 mg PO DAILY 11/21/19 04/13/20 Allergies Allergy/AdvReac Type Severity Reaction Status Date / Time sulfamethoxazole Allergy Intermediate Rash/Hives Verified 05/08/20 01:10 [From Bactrim] trimethoprim [From Bactrim] Allergy Intermediate Rash/Hives Verified 05/08/20 01:10 nitrofurantoin Allergy Rash/Hives Verified 05/08/20 01:10 [From Macrobid] adhesive tape AdvReac Unknown Verified 05/08/20 01:10 Review of Systems ROS Statement: Those systems with pertinent positive or pertinent negative responses have been documented in the HPI. ROS Other: All systems not noted in ROS Statement are negative. Past Medical History Past Medical History: No Reported History, GERD/Reflux Additional Past Medical History / Comment(s): prolapsed bladder. SEASONAL ALLERGIES. GBS History of Any Multi-Drug Resistant Organisms: None Reported Past Surgical History: Section, Tonsillectomy Past Anesthesia/Blood Transfusion Reactions: No Reported Reaction Additional Past Anesthesia/Blood Transfusion Reaction / Comment(s): august 2014 blood transfusion after vag delivery of 2 units. Past Psychological History: No Psychological Hx Reported Smoking Status: Never smoker Past Alcohol Use History: None Reported Past Drug Use History: None Reported - Past Family History Brother(s) Family Medical History: Blood Disorder Additional Family Medical History / Comment(s): MTHFR General Exam Limitations: no limitations General appearance: alert, in no apparent distress, obese Head exam: Present: atraumatic, normocephalic, normal inspection Eye exam: Present: normal appearance, PERRL, EOMI Pupils: Present: normal accommodation ENT exam: Present: normal exam, normal oropharynx, mucous membranes moist Neck exam: Present: normal inspection, full ROM. Absent: tenderness Respiratory exam: Present: normal lung sounds bilaterally. Absent: respiratory distress Cardiovascular Exam: Present: regular rate, normal rhythm, normal heart sounds Extremities exam: Present: full ROM, normal capillary refill, pedal edema (+2 pitting edema right lower shotty.), other (+2 dorsalis pedis and posterior tibials bilateral.). Absent: normal inspection (Unilateral leg swelling in the right lower stomach.), tenderness, joint swelling, calf tenderness (Negative Homans bilaterally.) Back exam: Present: normal inspection, full ROM. Absent: tenderness Neurological exam: Present: alert, oriented X3, normal gait Psychiatric exam: Present: normal affect, normal mood Skin exam: Present: warm, dry, intact, normal color Course Vital Signs 05/08/20 05/08/20 01:05 03:05 Temperature 98.1 F Pulse Rate 87 84 Respiratory 18 18 Rate Blood Pressure 126/79 124/77 O2 Sat by Pulse 99 99 Oximetry Medical Decision Making - Medical Decision Making patient is a 25-year-old female 37. Presenting to the emergency department with chief complaint of leg swelling. On physical examination, patient has right lower extremity +2 pitting edema. Negative Homans. No calf tenderness or any pain in the right lower extremity. Small region of ecchymosis from an object falling on her calf several days ago. She does not have any chest pain or shortness of breath . Doppler Ultrasound reveals no signs of DVT. Advised the patient to keep her feet elevated when resting. She was advised to follow with her OB. Strict return parameters were thoroughly discussed with patient was under standing agreeable. Case discussed with physician. Disposition Clinical Impression: Leg edema, right Disposition: HOME SELF-CARE Condition: Stable Instructions (If sedation given, give patient instructions): Leg Edema (ED) Additional Instructions: Keep her legs elevated. Return to emergency department if symptoms worsen. Is patient prescribed a controlled substance at d/c from ED?: No Referrals: Clark Sanchez MD [Primary Care Provider] - 1-2 days Time of Disposition: 03:01
--- NOTE | 2020-05-08 02:13 | US ---
EXAMINATION TYPE: US venous doppler duplex LE RT DATE OF EXAM: 05/08/2020 2:00 AM COMPARISON: NONE CLINICAL HISTORY: , unilateral leg swelling x1day. EC patient with right foot and ankle swell ing x 1 day; 37 weeks SIDE PERFORMED: Right TECHNIQUE: The lower extremity deep venous system is examined utilizing real time linear array sonog antonio with graded compression, doppler sonography and color-flow sonography. VESSELS IMAGED: Common Femoral Vein Deep Femoral Vein Greater Saphenous Vein * Femoral Vein Popliteal Vein Small Saphenous Vein * Proximal Calf Veins (* superficial vessels) Right Leg: Negative for DVT. Dual Right Femoral Vein is noted. Right ankle edema channels are seen b y US. IMPRESSION: No evidence of deep vein thrombosis in the right leg.
[2020-05-08 03:08] VITALS: BP 124/77; PULSE 84
== END 2020-05-08 03:07 | disposition home or self-care (01) ==
LOC: EC 01:04
DX: O9A.213 Injury, poisoning and certain other consequences of external causes complicating pregnancy, third trimester (principal); S80.11XA Contusion of right lower leg, initial encounter; M79.89 Other specified soft tissue disorders; Z88.2 Allergy status to sulfonamides; Z88.1 Allergy status to other antibiotic agents; Z91.048 Other nonmedicinal substance allergy status; Z3A.37 37 weeks gestation of pregnancy; W20.8XXA Other cause of strike by thrown, projected or falling object, initial encounter
CPT/HCPCS: 99283

== ENCOUNTER 2020-05-17 06:01 | Inpatient (IN) | payer OTHER ==
[2020-05-13 15:36] VITALS: BMI 46.1
[2020-05-17] MEDS ORDERED: CITRIC ACID-SODIUM CITRATE 15 ML CUP PO ONE (06:20)
[2020-05-17] MEDS ORDERED: ceFAZolin 3 GM in SODIUM CHLORIDE 0.9% 100 ML IVPB ONE (06:20)
[2020-05-17] MEDS ORDERED: LACTATED RINGERS 1,000 ML IV ONE (06:20)
[2020-05-17 06:55] LABS: Basophils % (A) 0 %; Eosinophils # (A) 0.2 k/uL (0-0.7); Eosinophils % (A) 2 %; HCT 33.5 % (34.0-46.0); HGB 10.5 gm/dL (11.4-16.0); Hypochromasia Moderate; Lymphocytes # (A) 3.1 k/uL (1.0-4.8); Lymphocytes % (A) 36 %; MCH 25.2 pg (25.0-35.0); MCHC 31.3 g/dL (31.0-37.0); MCV 80.6 fL (80.0-100.0); Mean Platelet Volume 7.5; Monocytes # (A) 0.4 k/uL (0-1.0); Monocytes % (A) 5 %; Neutrophils # (A) 4.8 k/uL (1.3-7.7); Neutrophils % (A) 55 %; Platelet Count 347 k/uL (150-450); RBC 4.16 m/uL (3.80-5.40); RDW 14.1 % (11.5-15.5); WBC 8.6 k/uL (3.8-10.6)
[2020-05-17] MEDS ORDERED: MORPHINE SULFATE (PF) 0.3 MG/0.3 ML SYR ONE (07:51)
[2020-05-17] MEDS ORDERED: ONDANSETRON 4 MG/2 ML VIAL ONE (07:51)
[2020-05-17] MEDS ORDERED: ePHEDrine SULFATE/0.9% NACL/PF 50 MG/5 ML SYRINGE IV ONE (07:51)
[2020-05-17] MEDS ORDERED: KETOROLAC 15 MG/ML 1 ML VIAL ONE (07:51)
[2020-05-17] MEDS ORDERED: NALBUPHINE 10 MG/ML (1 ML AMP) ONE (07:51)
[2020-05-17] MEDS ORDERED: OXYTOCIN 10 UNIT/ML 1 ML VIAL ONE (07:51)
--- NOTE | 2020-05-17 08:55 | P.HPOB ---
History of Present Illness H&P Date: 05/17/20 Chief Complaint: Here for elective repeat at 39 weeks gestation This is a 25-year-old female 3 para 2001 EDC 05/23/2020 at 39 weeks gestation. Patient presents for repeat low transverse section, declining the option for tubal ligation. She is having mild uterine contractions. She denies fluid leakage or vaginal bleeding. Fetus is been active throughout the . ALLERGIES include adhesive tape, Bactrim, and Macrobid to which reports a rash. Obstetric history is significant for blood type A+, rubella status immune. VDRL testing, hepatitis B surface antigen, HIV testing, urine culture, gonorrhea and chlamydia cultures all negative. Positive group B strep cultures. One-hour Glucola 134. Social history patient has never been a smoker, she drinks rare alcohol and denies drug use. She is engaged. Past medical history is significant for history of blood transfusion secondary to hemorrhage in 2014 secondary to vaginal laceration. Past surgical history blood patch placed in 2016, section 2016. Current medications vitamins daily. Family history significant for diabetes, positive MTHFR, lung cancer. On exam patient is 5 foot 6 inches, 274 pounds, blood pressure 123/81. Vital signs are stable and she is afebrile. Chest is clear in all oneal. Extremities reveal no edema. Abdominal wall has a red fungal type rash in the pannus. heart rate is consistent with reactive NST. Uterine contractions are noted spontaneously every 3 minutes apart, mild in intensity. Impression: 39 week intrauterine , here for repeat low transverse section. Fungal rash noted on the pannus. Positive group B strep cultures noted. Declining tubal ligation. Plan: 3 g Ancef given prophylactically. Repeat low transverse section, no tubal ligation. Silvadene dressing will be placed on the incision postoperatively. 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 Past Psychological History: No Psychological Hx Reported Smoking Status: Former smoker Past Alcohol Use History: None Reported Additional Past Alcohol Use History / Comment(s): quit smoking 2013, smoked less than 1ppd Past Drug Use History: None Reported - Past Family History Brother(s) Family Medical History: Blood Disorder Additional Family Medical History / Comment(s): MTHFR Medications and Allergies Home Medications Medication Instructions Recorded Confirmed Type Pediatric Multivitamin No.30 2 each PO DAILY 06/05/17 05/17/20 History [Multivitamin Children's Gummies] Folic Acid 1 mg PO DAILY 11/21/19 05/17/20 History Allergies Allergy/AdvReac Type Severity Reaction Status Date / Time sulfamethoxazole Allergy Intermediate Rash/Hives Verified 05/17/20 06:20 [From Bactrim] trimethoprim [From Bactrim] Allergy Intermediate Rash/Hives Verified 05/17/20 06:20 nitrofurantoin Allergy Rash/Hives Verified 05/17/20 06:20 [From Macrobid] adhesive tape AdvReac Unknown Verified 05/17/20 06:20 Exam Vital Signs Temp Pulse Resp BP 05/17/20 06:22 96.2 F L 90 16 123/81 Intake and Output 05/16/20 05/17/20 05/17/20 22:59 06:59 14:59 Other: Weight 124.284 kg As per dictation please Results Result Diagrams: 05/17/20 06:40 Abnormal Lab Results - Last 24 Hours (Table) 05/17/20 Range/Units 06:40 Hgb 10.5 L (11.4-16.0) gm/dL Hct 33.5 L (34.0-46.0) % Assessment and Plan Assessment: 39 week intrauterine , morbid obesity, previous section, here for repeat section. All signs reassuring. Positive group strep cultures noted. Plan: 3 g of Ancef given. For repeat low transverse section. All questions addressed. Time with Patient: Less than 30
[2020-05-17] MEDS ORDERED: NALOXONE 0.4 MG/ML 1 ML VIAL IV PRN (09:01)
[2020-05-17] MEDS ORDERED: diphenhydrAMINE 50 MG CAP PO PRN (09:01)
[2020-05-17] MEDS ORDERED: ZOLPIDEM 5 MG TAB PO PRN (09:01)
[2020-05-17] MEDS ORDERED: ACETAMINOPHEN TAB 325 MG TAB PO PRN (09:01)
[2020-05-17] MEDS ORDERED: diphenhydrAMINE 50 MG/ML 1 ML VIAL IVP PRN ×2 (09:01)
[2020-05-17] MEDS ORDERED: METOCLOPRAMIDE 5 MG/ML 2 ML VIAL IVP PRN (09:01)
[2020-05-17] MEDS ORDERED: ONDANSETRON 4 MG/2 ML VIAL IVP PRN (09:01)
[2020-05-17] MEDS ORDERED: diphenhydrAMINE 25 MG CAP PO PRN (09:01)
--- NOTE | 2020-05-17 09:01 | P.OP ---
Date of Procedure: 05/17/20 Preoperative Diagnosis: 39 week intrauterine , morbid maternal obesity, previous section, here for repeat section. Positive group B strep cultures noted. Postoperative Diagnosis: Same, left occiput transverse presentation, liveborn female . Normal- appearing tubes and ovaries bilaterally. Procedure(s) Performed: Repeat low transverse section Anesthesia: spinal Surgeon: Yovana Castillo [employer] Property Loss Specialist #1: Becca Escobedo Estimated Blood Loss (ml): 600 IV fluids (ml): 1,200 Urine output (ml): 200 Pathology: none sent Condition: stable Disposition: PACU Operative Findings: Liveborn female , 8 lbs. 7 oz., 3830 g. Left occiput transverse position. Description of Procedure: Patient is brought to the operating suite after a spinal analgesia is given. 3 g of Ancef are given. The appropriate timeout is performed to assure proper patient and procedural identification. Collier catheter placed to direct drainage. Patient is placed in the dorsal supine position with left lateral uterine displacement. The abdomen is prepped and draped in usual sterile fashion. There is a red fungal type rash noted in the abdominal pannus in the area of the incision. Analgesia is checked and noted to be adequate. A low transverse uterine incision is made in this is carried down through the subcutaneous tissue which is approximately 6-8 cm deep. Fascia is isolated, scored, extended bilaterally with curved Infante scissors. Peritoneum is next identified and incised, there is no bowel or bladder involvement. The bladder blade is placed over the bladder and Metzenbaum scissors are used to mobilize the bladder, it is at all times swept well from the operative field to avoid bladder and/or ureteral injury. A repeat low transverse uterine incision is made, artificial amniorrhexis reveals clear fluid. The incision is extended with blunt dissection. 's head is delivered in the left occiput transverse position. The oropharynx, nasopharynx, and external nares were all bulb suctioned on the perineal body. Patient is officially delivered of a liveborn female at 0811 hours. Umbilical cord is doubly clamped and ligated, she is handed to waiting nurses for evaluation where scores of 9 and 9 at one and 5 minutes respectively are given. The placenta delivers manually, it is inspected and noted to be intact with triva scular cord. The uterus is then externalized and massaged. It is swept clean with a sterile sponge to avoid any retained products of conception. Uterus is closed in a two-step fashion using 0 Vicryl suture. First layer is running locking, second layer is imbricated. Bilateral tubes and ovaries are inspected and noted to be normal. Hemostasis is excellent. Abdomen is suctioned posterior to the uterus with a suction on guard. Uterus is gently placed into the abdominal cavity. Bilateral gutters are inspected and cleaned. Peritoneum was allowed to close by secondary intention. Fascia is closed in a running stitch of 0 Vicryl with excellent reapproximation. Subcutaneous tissue is irrigated, clean and dry. It is reapproximated with 3-0 Vicryl in a running fashion. 4-0 undyed Vicryl issues for final skin closure. Steri-Strips and Mastisol are applied to the wound, along with the silver impregnated dressing to aid in healthy wound healing. Collier is noted to be draining clear urine. All sponge needle and enhancement counts are correct at the end of the procedure. Estimated blood loss 600 mL, urine output 200 mL, fluid replacement 1200 mL's. Patient is brought back to recovery room in excellent condition with a blood pressure of 113/62, pulse 68.
[2020-05-17] MEDS: LACTATED RINGERS 1,000 ML IV SCH ×4 (09:33→19:42)
[2020-05-17] MEDS: SENNOSIDES-DOCUSATE SODIUM 1 EACH TAB PO SCH (19:41)
[2020-05-18] MEDS: LACTATED RINGERS 1,000 ML IV SCH ×3 (05:22→21:44)
--- NOTE | 2020-05-18 06:07 | P.PN ---
Subjective Progress Note Date: 05/18/20 Principal diagnosis: Postoperative day #1 Slept well. Positive flatus. Pain well managed. No complaints. Objective - Vital Signs Vital signs: Vital Signs Temp 98.6 F 05/18/20 04:00 Pulse 68 05/18/20 04:00 Resp 16 05/18/20 04:00 BP 111/56 05/18/20 04:00 Pulse Ox 98 05/18/20 04:00 Intake & Output 05/17/20 05/17/20 05/18/20 06:59 18:59 06:59 Intake Total 1400 Output Total 550 500 Balance 850 -500 Weight 124.284 kg Intake: IV 1400 Output: Urine 550 500 Other: Voiding Method Indwelling Catheter # Voids 1 - Constitutional General appearance: Present: morbidly obese - EENT Eyes: Present: PERRLA ENT: Present: hearing grossly normal - Respiratory Respiratory: bilateral: CTA - Cardiovascular Rhythm: regular - Gastrointestinal General gastrointestinal: Present: normal bowel sounds - Integumentary Integumentary Comment(s): Incision well approximated, Steri-Strips and dressing applied. Fundus firm, midline, symmetric, 18 week size, nontender. Integumentary: Present: normal - Neurologic Neurologic: Present: CNII-XII intact - Musculoskeletal Musculoskeletal: Present: gait normal - Psychiatric Psychiatric: Present: appropriate affect, intact judgment & insight - Labs CBC & Chem 7: 05/17/20 06:40 Labs: Abnormal Lab Results - Last 24 Hours (Table) 05/17/20 Range/Units 06:40 Hgb 10.5 L (11.4-16.0) gm/dL Hct 33.5 L (34.0-46.0) % Assessment and Plan Assessment: Doing well postoperative day #1 Plan: Continue postoperative care. Advanced diet and activity. Anticipate likely discharge home tomorrow. Time with Patient: Less than 30
[2020-05-18 06:32] LABS: Basophils % (A) 0 %; Eosinophils # (A) 0.1 k/uL (0-0.7); Eosinophils % (A) 1 %; HCT 30.7 % (34.0-46.0); HGB 9.6 gm/dL (11.4-16.0); Hypochromasia Marked; Lymphocytes % (A) 20 %; MCH 26.7 pg (25.0-35.0); MCHC 31.3 g/dL (31.0-37.0); MCV 85.3 fL (80.0-100.0); Mean Platelet Volume 7.3; Monocytes # (A) 0.5 k/uL (0-1.0); Monocytes % (A) 5 %; Neutrophils # (A) 7.3 k/uL (1.3-7.7); Neutrophils % (A) 73 %; Platelet Count 305 k/uL (150-450); RBC 3.59 m/uL (3.80-5.40); RDW 14.4 % (11.5-15.5); WBC 10.1 k/uL (3.8-10.6)
[2020-05-18] MEDS: IBUPROFEN 600 MG TAB PO PRN ×3 (08:10→22:36)
[2020-05-18] MEDS: SENNOSIDES-DOCUSATE SODIUM 1 EACH TAB PO SCH ×2 (08:10→21:44)
--- NOTE | 2020-05-18 11:09 | P.PN ---
Progress Note - Text 05/18/20 656am 25-year-old female status post with spinal Duramorph. Patient seen and evaluated this morning for postop pain control, patient has VAS of 3, no complains of nausea vomiting. Complains of mild pruritus. Patient doing well.
[2020-05-18 23:24] VITALS: RESP 16
[2020-05-19] MEDS: LACTATED RINGERS 1,000 ML IV SCH (04:57)
[2020-05-19] MEDS: IBUPROFEN 600 MG TAB PO PRN (06:13)
[2020-05-19 07:56] VITALS: BP 115/62; PULSE 82; TEMP 98
--- NOTE | 2020-05-19 07:57 | P.DS ---
Providers Date of admission: 05/17/20 06:01 Expected date of discharge: 05/19/20 Attending physician: Yovana Castillo Primary care physician: [facility] Course: This is a 25-year-old white female 3 para 2002 EDC 05/23/2020 at 39 weeks gestation. Patient presented for repeat low transverse section, declining the option for . She declined the option for tubal ligation. is remarkable for positive group B strep cultures, blood type A+, rubella status immune. Please see dictated history and physical for details. Patient underwent a repeat low transverse section and gave to a liveborn female with scores of 9 and 9 at one and 5 minutes respectively. Infant weighed 8 lbs. 7 oz. or 3830 g. Estimated blood loss 600 mL's. Infant was noted to be in the occiput transverse position. Please see my dictated delivery note for details. This morning the patient is doing well. She is voiding, ambulating, passing flatus without difficulty. Vital signs are stable and she is afebrile. The incision is clean and dry, intact, with dressing applied along with Steri- Strips. Breasts are not engorged. Breast-feeding is going well. Patient is judged to be in very good condition for discharge home. She will follow-up with me in the office in 2 weeks. I have reminded her no intercourse, tampons or douching. I have provided her with a double electric breast pump prescription. She will continue taking her vitamins daily. Increase oral fluids. Call with any fevers shakes or chills, foul smelling or copious lochia, with the passage of large blood clots, with any pain not alleviated by [id number] products including ibuprofen, or indeed with any concerns. We have discussed contraceptive options and we'll discuss this further in the office. Assessment: Doing well postoperative day #3 Patient Condition at Discharge: Good Plan - Discharge Summary Discharge Rx Participant: No New Discharge Prescriptions: No Action Pediatric Multivitamin No.30 [Multivitamin Children's Gummies] 2 each PO DAILY Folic Acid 1 mg PO DAILY Discharge Medication List Pediatric Multivitamin No.30 [Multivitamin Children's Gummies] 2 each PO DAILY 06/05/17 [History] Folic Acid 1 mg PO DAILY 11/21/19 [History] Follow up Appointment(s)/Referral(s): Yovana Castillo MD [STAFF PHYSICIAN] - 2 Weeks Discharge Disposition: HOME SELF-CARE
[2020-05-19] MEDS: SENNOSIDES-DOCUSATE SODIUM 1 EACH TAB PO SCH (08:00)
== END 2020-05-19 11:00 | disposition home or self-care (01) | DRG 788 ==
LOC: 4FBP 06:01
PROVIDERS: ADMIT Obstetrics & Gynecology; ATTEND Obstetrics & Gynecology
PROC: 10D00Z1 Extraction of Products of Conception, Low, Open Approach (ICD-10-PCS; principal; 2020-05-17 08:00)
DX: O34.211 Maternal care for low transverse scar from previous cesarean delivery (principal); E66.01 Morbid (severe) obesity due to excess calories; B36.9 Superficial mycosis, unspecified; L29.9 Pruritus, unspecified; O32.2XX0 Maternal care for transverse and oblique lie, not applicable or unspecified; O99.214 Obesity complicating childbirth; Z37.0 Single live birth; Z3A.39 39 weeks gestation of pregnancy; Z80.1 Family history of malignant neoplasm of trachea, bronchus and lung; Z83.3 Family history of diabetes mellitus; Z87.891 Personal history of nicotine dependence; Z90.89 Acquired absence of other organs; Z88.2 Allergy status to sulfonamides; Z88.8 Allergy status to other drugs, medicaments and biological substances
CPT/HCPCS: 85025; 86850; 86900; 86901